=== PATIENT | male | born 1965 | race Hispanic/Latino ===

== ENCOUNTER 2016-10-29 04:24 | Emergency (ER) | payer OTHER ==
[2016-10-29 04:54] VITALS: BP 126/82
--- NOTE | 2016-10-29 05:02 | ED MVC/FALL/TRAUMA COMPLAINT ---
History of Present Illness General Chief Complaint: Hip Injury Stated Complaint: HIP INJURY S/P FALL AT WORK Source: patient, family, old records Exam Limitations: no limitations Vital Signs & Intake/Output Vital Signs & Intake/Output Vital Signs Date Time Temp Pulse Resp B/P Pulse O2 O2 Flow FiO2 Ox Delivery Rate 10/29 0454 97.2 77 18 126/82 98 Room Air Allergies Coded Allergies: No Known Allergies (10/29/16) Reconcile Medications Cyclobenzaprine HCl 10 MG TABLET 1 TAB PO Q8P PAIN OR SPASM Oxycodone HCl/Acetaminophen (Percocet 5-325 MG Tablet) 5 MG-325 MG TABLET 1-2 TAB PO Q6P PRN PAIN Triage Nurses Notes Reviewed? yes HPI: Patient was at work throwing garbage away outside when he slipped on ice and fell and landed on his right hip. Patient has been able to ambulate on it since the injury. Patient states that he is having pain in his right hip, his right knee and his right heel. The pain to all 3 locations are throbbing in nature and increased with ambulation. The pain radiates from his hip to his knee to his calf to his heel. He rates the pain at 7 out of 10. He denies any numbness or tingling. Patient denies hitting his head and there was no loss of consciousness. Past History Travel History Traveled to [place] past 21 day No Medical History Any Pertinent Medical History? none Surgical History Surgical History: non-contributory Psychosocial History Tobacco Use: Never used ETOH Use: occasional use Illicit Drug Use: denies illicit drug use Family History Hx Contributory? No Review of Systems Review of Systems Constitutional: Reports: no symptoms. Eyes: Reports: no symptoms. Respiratory: Reports: no symptoms. Cardiovascular: Reports: no symptoms. Gastrointestinal/Abdominal: Reports: no symptoms. Musculoskeletal: Reports: see HPI, joint pain. Neurological/Psychological: Reports: no symptoms. Physical Exam Physical Exam General Appearance: well developed/nourished, alert, awake, moderate distress Head: atraumatic, normal appearance Eyes: Bilateral: PERRL, EOMI. Ears, Nose, Throat, Mouth: hearing grossly normal, moist mucous membrane Neck: normal inspection, supple, full range of motion, no midline tenderness Respiratory: normal breath sounds, chest non-tender, no respiratory distress, lungs clear Cardiovascular: regular rate/rhythm, normal peripheral pulses Gastrointestinal: normal bowel sounds, soft, non-tender, no organomegaly Back: normal inspection, normal range of motion Extremities: limited range of motion, pain with movement Neurologic/Psych: no motor/sensory deficits, awake, alert, oriented x 3, normal mood/affect Skin: intact, normal color, warm/dry Core Measures ACS in differential dx? No Severe Sepsis Present: No Septic Shock Present: No Progress Differential Diagnosis: C/T/L spine injury, ext injury Plan of Care: Orders Procedure Date/time Status XRY-KNEE COMPLETE RIGHT 10/29 500 Active XRY-HIP 2-3 VIEWS, RIGHT 10/29 500 Active XRY-HEEL, RIGHT 10/29 500 Active Diagnostic Imaging: Viewed by Me: Radiology Read. Discussed w/RAD: Radiology Read. Radiology Impression: PATIENT: DAX JOLLY PRESENT AGE: 50 PATIENT ACCOUNT NO: [id number] : 69 LOCATION: [facility] ORDERING PHYSICIAN: SHALINI PERSON MD SERVICE DATE: 10/29/16 EXAM TYPE: RAD - XRY-HEEL, RIGHT EXAMINATION: XR CALCANEUS, RIGHT CLINICAL INFORMATION: Pain after fall COMPARISON: None TECHNIQUE: Lateral and axial views of the right calcaneus were obtained. FINDINGS: No acute fracture is seen. Alignment of the visualized foot appears anatomic. IMPRESSION: No acute findings. DICTATED BY: ALESIA PIERRE MD DATE/TIME DICTATED:10/29/16611 RECLAMATION FURNACE OPERATOR:DICK DATE/TIME TRANSCRIBED:10/29/16611 CONFIDENTIAL, DO NOT COPY WITHOUT APPROPRIATE AUTHORIZATION. <Electronically signed in Other Vendor System> SIGNED BY: ALESIA PIERRE MD 10/29/16616, PATIENT: DAX JOLLY PRESENT AGE: 50 PATIENT ACCOUNT NO: [id number] : 69 LOCATION: [facility] ORDERING PHYSICIAN: SHALINI PERSON MD SERVICE DATE: EXAM TYPE: RAD - XRY-KNEE COMPLETE RIGHT EXAMINATION: XR KNEE, RIGHT CLINICAL INFORMATION: Fall COMPARISON: None TECHNIQUE: Four views of the right knee. FINDINGS: Alignment is anatomic. Joint spaces are maintained. No acute fracture is seen. No significant effusion or soft tissue swelling. IMPRESSION: No acute findings. DICTATED BY: ALESIA PIERRE MD DATE/TIME DICTATED:10/29/16610 RECLAMATION FURNACE OPERATOR:DICK DATE/TIME TRANSCRIBED:10/29/16610 CONFIDENTIAL, DO NOT COPY WITHOUT APPROPRIATE AUTHORIZATION. <Electronically signed in Other Vendor System> SIGNED BY: ALESIA PIERRE MD 10/29/16614, PATIENT: DAX JOLLY PRESENT AGE: 50 PATIENT ACCOUNT NO: [id number] : 69 LOCATION: [facility] ORDERING PHYSICIAN: SHALINI PERSON MD SERVICE DATE: 10/29/16 EXAM TYPE: RAD - XRY-HIP 2-3 VIEWS, RIGHT EXAMINATION: XR HIP, RIGHT CLINICAL INFORMATION: Fall COMPARISON: None TECHNIQUE: AP pelvis and 2 views of the right hip. FINDINGS: Alignment across the hips is anatomic. Joint spaces are relatively well-preserved. There is mild acetabular spurring. No acute fracture is seen. The sacroiliac joints are intact. IMPRESSION: No acute findings. DICTATED BY: ALESIA PIERRE MD DATE/TIME DICTATED:10/29/16607 RECLAMATION FURNACE OPERATOR:DICK DATE/TIME TRANSCRIBED:607 CONFIDENTIAL, DO NOT COPY WITHOUT APPROPRIATE AUTHORIZATION. < Electronically signed in Other Vendor System> SIGNED BY: ALESIA PIERRE MD 10/29/16613 Departure Departure Disposition: HOME OR SELF CARE Condition: Stable Clinical Impression Primary Impression: Hip injury Referrals: PATIENT HAS NO PRIMARY CARE DR (PCP/Family) Additional Instructions: RETURN IF SYMPTOMS WORSEN OR FOR ANY CONCERNS Departure Forms: Customer Survey General Discharge Information Prescriptions: Current Visit Scripts Cyclobenzaprine HCl 1 TAB PO Q8P #20 TAB Oxycodone HCl/Acetaminophen (Percocet 5-325 MG Tablet) 1-2 TAB PO Q6P PRN PAIN #20 TAB
--- NOTE | 2016-10-29 06:14 | RADIOLOGY REPORT ---
EXAMINATION: XR HIP, RIGHT CLINICAL INFORMATION: Fall COMPARISON: None TECHNIQUE: AP pelvis and 2 views of the right hip. FINDINGS: Alignment across the hips is anatomic. Joint spaces are relatively well-preserved. There is mild acetabular spurring. No acute fracture is seen. The sacroiliac joints are intact. IMPRESSION: No acute findings.
--- NOTE | 2016-10-29 06:15 | RADIOLOGY REPORT ---
EXAMINATION: XR KNEE, RIGHT CLINICAL INFORMATION: Fall COMPARISON: None TECHNIQUE: Four views of the right knee. FINDINGS: Alignment is anatomic. Joint spaces are maintained. No acute fracture is seen. No significant effusion or soft tissue swelling. IMPRESSION: No acute findings.
--- NOTE | 2016-10-29 06:17 | RADIOLOGY REPORT ---
EXAMINATION: XR CALCANEUS, RIGHT CLINICAL INFORMATION: Pain after fall COMPARISON: None TECHNIQUE: Lateral and axial views of the right calcaneus were obtained. FINDINGS: No acute fracture is seen. Alignment of the visualized foot appears anatomic. IMPRESSION: No acute findings.
[2016-10-29] MEDS ORDERED: CYCLOBENZAPRINE10 M1 PO (06:27)
[2016-10-29] MEDS ORDERED: PERCOCET 5-3251 EACH PO (06:27)
== END 2016-10-29 07:04 ==
LOC: ERH 04:24
DX: S79.911A Unspecified injury of right hip, initial encounter (principal); M25.561 Pain in right knee; M79.671 Pain in right foot; W00.0XXA Fall on same level due to ice and snow, initial encounter
CPT/HCPCS: 73502-RT; 73562-RT; 73650-RT